=== PATIENT | male | born 1935 | race Caucasian/White ===

== ENCOUNTER → 2016-12-05 | Outpatient (CLI) | payer MEDICARE, OTHER ==
[~2016-12-05] MED LIST: ASPIRIN LO-DOSE81 MG PO; FISH OIL 1,0001 EAC3 PO; FLOMAX0.4 MG PO; HYDRODIURIL12.5 MG PO; LASIX20 MG PO; LIPITOR10 MG PO; LOTENSIN20 MG PO; NITROSTAT0.4 MG SL; NORVASC5 MG PO; OCUVITE SOFTGE1 EACH PO; PLAVIX75 MG PO; PROVENTIL OR V6.7 GM INH; RANEXA ER500 MG PO; Z-PAK250 MG PO
== END | disposition disaster alternative care site (69) ==
LOC: LGSMG 16:18
DX: I50.9 Heart failure, unspecified (principal)

== ENCOUNTER 2016-12-10 05:51 | Outpatient (CLI) | payer MEDICARE, OTHER ==
[~2016-12-10] VITALS: Ht 172.7 cm; Wt 100.3 kg
--- NOTE | ~2016-12-10 | CATH ---
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 80 % proximal eccentric, hazy lesion in a large diagonal brach - large vessel in setting of unstable angina. Diagnostic Recommendations PCI of proximal diagonal. Interventional Findings and Conclusion S/P PCI of the proximal diagonal with FLAKO. Interventional Recommendations DAPT x 1 year. Hydration and followup creatinine. Patient has been instructed to not lift anything more than 5 pounds for 1 week. I will plan on seeing the patient back in 2 week(s). Patient will be discharged tomorrow. Aggressive risk factor management. Aggressive medical therapy for coronary artery disease. Recommend aggressive risk factor modification. Cardiac diet . Referral to Cardiac Rehabilitation now and at discharge . Procedure Description The patient was brought to the diagnostic cardiac catheterization-EP laboratory in the fasting, non-sedated state. Informed consent was obtained in the written and verbal form after the risks and benefits were explained. The patient had no further questions and agreed to proceed. The planned puncture-incision site(s) were shaved and prepped with ChloraPrep and draped in the usual sterile manner. Conscious sedation, supplemental oxygen, and pain control medications were delivered by a registered nurse under physician guidance. Surface ECG rhythm, blood pressure measurement, and pulse oximetry were monitored throughout the procedure. Arterial access. The access site was infiltrated with lidocaine. The vessel was entered with the Seldinger technique. A sheath was advanced into the vessel and used for catheter placement. Venous access. The access site was infiltrated with 2% lidocaine. The vessel was entered with the Seldinger technique. A sheath was advanced into the vessel and used for catheter placement. Selective left coronary angiography. A catheter was advanced into the left coronary vessel ostium under Fluoroscopic guidance. Contrast was injected by hand. Images were obtained in multiple projections. Selective right coronary angiography. A catheter was advanced into the right coronary vessel ostium under fluoroscopic guidance. Contrast was injected by hand. Images were obtained in multiple projections. Right heart catheterization. A [place] Mansoor catheter was successfully advanced to the right atrium, right ventricle, pulmonary artery, and pulmonary artery wedge position under fluoroscopic guidance. Resting hemodynamics were obtained. Measurements included pressures, arterial and venous oxygen saturation samples, and cardiac output. The [place] was removed without difficulty. Angioplasty and Stent Placement: A guiding catheter was used to intubate the vessel. A 0.14 wire was then used to cross the lesion. A balloon catheter was placed across the lesion and inflated. The balloon catheter was then removed. A Drug Eluting Stent was placed and inflated. Post placement angiograms were performed. Arterial and Venous hemostasis was achieved. The patient was transferred to a regular nursing floor via cart accompanied by a nurse. The patient left the laboratory in stable condition. Diagnostic Cath Status: Elective Interventional Cath Status: Elective Procedure Procedure Type Diagnostic procedure:Angiography:, RHC w/Coronary Angio PCI procedure:Drug Eluting Coronary Stent:, Diagonal Indications: Unstable angina. The procedure was explained in detail to the patient. Risks, complications and alternative treatments were reviewed. Written consent was obtained. Medications Reviewed with Patient prior to Procedure. Angiographic Findings Dominance: Right Cardiac Arteries and Lesion Findings LMCA: Normal (0% Stenosis). LAD: Lesion on 1st Diag: Ostial.80% stenosis 12 mm length reduced to 0%. Pre procedure SEEMA III flow was noted. Post Procedure SEEMA III flow was present. The guidewire cross was successful.The lesion was diagnosed as a low risk lesion.Culprit lesion.Bifurcation lesion. Treatment results:Interventional treatment was successful. Devices used - Runthrough NS .014 x 180. Number of passes: 1. - Emerge Balloon 2.5 x 8. 1 inflation(s) to a max pressure of: 10 willis. - Promus Premier 3.0 x 12 Stent. 2 inflation(s) to a max pressure of: 14 willis. Lesion on Mid LAD: 10% stenosis . LCx: Normal (0% Stenosis). RCA: Normal (0% Stenosis). Coronary Tree Procedure Data Procedure Date Date: 12/10/2016Start: 08:35 AMEnd: 09:57 AM Entry Locations - Retrograde Percutaneous access was performed through the Right Radial artery (Primary location). A 6 Fr sheath was inserted. Hemostasis was successfully obtained using Mechanical Compression. Closure Comments: R band with 15 cc air deployed by RT. Noe. - Antegrade Percutaneous access was performed through the Right Brachial vein. A 6 Fr sheath was inserted. Closure Comments: Pressure held for 10 minutes by RT. Noe. Procedure Medications Order and Administration + + + + + !Time !Medication !Dosage !Route ! + + + + + !12/10/2016 08:33 !Oxygen !1 l/min !NC ! !AM ! ! ! ! + + + + + !12/10/2016 08:33 !Fentanyl !25 mcg !I.V. ! !AM ! ! ! ! + + + + + !12/10/2016 08:39 !Oxygen !2 l/min !NC ! !AM ! ! ! ! + + + + + !12/10/2016 08:39 !Radial Verapamil !2.5 mg !I.A. ! !AM ! ! ! ! + + + + + 12/10/2016 09:06 !Angiomax (Bivalirudin) !75 mg !I.V. bolus ! !AM !(ACC_5) ! ! ! + + + + + !12/10/2016 09:09 !Angiomax (Bivalirudin) !1.75 mg/kg/hr!I.V. drip ! !AM !(ACC_5) ! ! ! + + + + 12/10/2016 09:37 !Plavix (ACC_8) !600 mg !P.O. ! !AM ! ! ! ! + + + + + !12/10/2016 08:47 !Heparin (ACC_3) !5000 units !I.V. ! !AM ! ! ! ! + + + + + Devices Used - A6 Fr. Balloon Wedge Catheterwas used for:Right heart cath. - A5 Fr. BS JR 4 Diag. Catheterwas used for:Right coronary angiography.Unable to cannulate the vessel. - A6 Fr. JJ 3DRC Diag. Catheterwas used for:Right coronary angiography. - A5 Fr. BS JL 3.5 Diag. Catheterwas used for:Left coronary angiography. - A6 Fr. XB 3.5 Guide Catheterwas used for:LAD Intervention.Unable to cannulate the vessel. - A6 Fr. EBU 3.5 Guide Catheterwas used for:LAD Intervention. - A6 Fr. Guidlinerwas used for:LAD Intervention. Contrast Material - Isovue 125732 ml Fluoroscopy Time: Diagnostic: 22:06 minutes. Total: 22:06 minutes. Fluoroscopy Dose: Diagnostic: 2766 mGy. Total: 2766 mGy. Estimated Blood Loss: [address] [facility] PCI Information PCI Indication:PCI for high risk Non-STEMI or unstable angina. Medical History Performed Procedures and Imaging Results - No [facility] stress or imaging studies were performed. Allergies - Other:(tramadol). Risk Factors The patient risk factors include:hypertension, last creatinine: 1.6 mg/dl, creatinine clearance: 52.24 ml/min, dyslipidemia and former tobacco use. Admission Data Admission Date: 12/10/2016 Admission Time: 05:51 AM Admit Source: Other Insurance Payors: Medicare. Admission Medications + +------+------+ + + + + !Medication !Dosage!Times !Last !Last !Administered !Comments ! ! ! !Per !Delivery !Delivery ! ! ! ! ! !Day !Date !Time ! ! ! + +------+------+ + + + + !COLLETTE ! ! ! ! !Yes ! ! !Inhibitor ! ! ! ! ! ! ! !(any) ! ! ! ! ! ! ! + +------+------+ + + + + !Aspirin ! ! ! ! !Yes ! ! !(any) ! ! ! ! ! ! ! + +------+------+ + + + + !Statin (any)! ! ! ! !Yes ! ! + +------+------+ + + + + Clinical Evaluation Leading to Procedure - The patient's CAD presentation was assessed as: Unstable angina. - The patient's anginal syndrome during the past two weeks was assessed as: Class III according to the [place] Cardiovascular Society Classification System (CCS). Anti-anginal medications were prescribed during the past two weeks. The medications are: Ca channel Blockers and Ranolazine. - The patient has been in a state of heart failure within the past two weeks. - The patient's heart failure status was assessed as NYHA Class III, with CHF symptoms of ALLISON. Hemodynamics Condition: Rest O2 Consumption: Estimated: 231.29Heart Rate: 55 bpm Oxygen Saturation +--------+-----+----+ +---+ + !Location!pCO2 !pO2 !% Saturation !Hgb!O2 Content ! +--------+-----+----+ +---+ + !PA ! ! !71.1 ! ! ! +--------+-----+----+ +---+ + !RV ! ! !70.1 ! ! ! +--------+-----+----+ +---+ + !RA ! ! !71.9 ! ! ! +--------+-----+----+ +---+ + Pressures (mmHg) +-----+ + !Site !Pressure ! +-----+ + !PA !34/9 (18) ! +-----+ + !PCW !/ (6) ! +-----+ + !RV !34/ ,7 ! +-----+ + !RA !12/04 (4) ! +-----+ + !AO !115/53 (77) ! +-----+ + !AO !134/59 (89) ! +-----+ + !AO !114/51 (76) ! +-----+ + Shunts Oxygen Values O2 Capacity 189.04 O2 Consumption 231.29 Signatures dtt: INES ACUÑA dtd: 12/10/16 0835 Physician Self Edit
[~2016-12-10 05:51] MED LIST changes: -NITROSTAT0.4 MG SL; -PLAVIX75 MG PO
[2016-12-10 06:46] LABS: BASOPHIL % 0.5 %; EOSINOPHIL # 0.6 K/uL (0.0-0.5); EOSINOPHIL % 9.6 %; HEMATOCRIT 40.6 % (33.0-50.0); HEMOGLOBIN 13.9 g/dL (11.0-16.0); IMMATURE GRANULOCYTE % 0.5 %; LYMPHOCYTE # 1.3 K/uL (0.8-4.0); LYMPHOCYTE % 21.2 %; MCH 30.8 pg (27.0-34.0); MCHC 34.2 gm/dL (32.0-36.5); MCV 89.8 fl (83.0-98.0); MONOCYTE # 0.7 K/uL (0.0-1.0); MONOCYTE % 11.1 %; MPV 9.1 fl (9.4-12.4); NEUTROPHIL # (ANC) 3.5 K/uL (1.4-9.0); NEUTROPHIL % 57.1 %; NRBC % 0 /100WBC (0-0.00); PLATELET COUNT 202 K/uL (150-450); RBC 4.52 M/uL (3.50-5.50); RDW-CV 12.7 % (11.9-14.6); WBC 6.1 K/uL (4.0-11.0)
[2016-12-10 07:01] LABS: ALBUMIN 3.3 gm/dL (3.5-5.0); ANION GAP 11.4 (10.0-19.0); CALCIUM 8.6 mg/dL (8.5-10.5); CREATININE 1.6 mg/dL (0.6-1.3); POTASSIUM 4.4 mMol/L (3.7-5.1); TOTAL BILIRUBIN 0.4 mg/dL (0.0-1.5)
[2016-12-10 07:03] LABS: INR - (THERAPEUTIC) 0.95 (0.92-1.07); PTT 26 SECONDS (25-32)
[2016-12-10 11:44] LABS: CPK 88 IU/L (35-332)
--- NOTE | 2016-12-10 15:09 | NUR ---
Significant Event: A/O. VSS weaned to RA. Denies pain. R) radial site WNL - r band removed at 1430. R) brachial site remains WNL with d stat and tegaderm in place. Up ambulating in halls and tolerated well. Voiding per urinal. Tolerating meals. Follow up: dismiss to home tomorrow.
[2016-12-10 17:21] LABS: CPK 86 IU/L (35-332)
--- NOTE | 2016-12-11 04:15 | NUR ---
Significant Event: Patient A/Ox3. VSS on RA. Up SBA to bathroom. R) radial and brachial heart cath sites are soft. Brachial site does have slight bruising from when patient first returned to the floor yesterday morning with slight drainage on the dressing. No complaints of pain. Lung sounds are diminished. Follow up: Hold morninging lisinopril if creatinine has not improved. Home today?
[2016-12-11 05:24] LABS: ANION GAP 10.8 (10.0-19.0); CALCIUM 8.5 mg/dL (8.5-10.5); CREATININE 1.3 mg/dL (0.6-1.3); POTASSIUM 4.8 mMol/L (3.7-5.1); TOTAL PROTEIN 6.5 g/dL (6.0-8.4)
[2016-12-11 05:25] LABS: TOTAL BILIRUBIN 0.3 mg/dL (0.0-1.5)
[2016-12-11] MEDS ORDERED: LOTENSIN20 MG PO ×2 (10:38→10:44)
[2016-12-11] MEDS ORDERED: PLAVIX75 MG PO ×2 (10:39→10:46)
[2016-12-11] MEDS ORDERED: LASIX20 MG PO (10:48)
[2016-12-11] MEDS ORDERED: NITROSTAT0.4 MG SL (10:49)
== END 2016-12-11 11:19 | disposition disaster alternative care site (69) ==
LOC: GCAT 05:51 → GPCU 05:51 → GPOC 06:00 → GPCU 09:15 → GCAT 12-11 11:19 → GPOC 12-11 13:00
PROVIDERS: Internal Medicine Interventional Cardiology
PROC: 4A023N8 Measurement of Cardiac Sampling and Pressure, Bilateral, Percutaneous Approach (ICD-10-PCS; principal; 2016-12-10)
PROC: B216YZZ Fluoroscopy of Right and Left Heart using Other Contrast (ICD-10-PCS; 2016-12-10)
DX: I20.0 Unstable angina (principal)
CPT/HCPCS: C1725; C1769; C1874; C1887; C1894; C9600; J0583; J1644; J2001; J2250; J3010; J7030; J7060

== ENCOUNTER → 2016-12-22 | Outpatient (CLI) | payer MEDICARE, OTHER ==
[~2016-12-22] MED LIST changes: +NITROSTAT0.4 MG SL; +PLAVIX75 MG PO
[2016-12-22 15:26] LABS: ANION GAP 10.2 (10.0-19.0); CALCIUM 8.8 mg/dL (8.5-10.5); CREATININE 1.4 mg/dL (0.6-1.3); POTASSIUM 4.2 mMol/L (3.7-5.1)
== END | disposition disaster alternative care site (69) ==
LOC: LNHI 15:05
PROVIDERS: Internal Medicine Interventional Cardiology
DX: I25.119 Atherosclerotic heart disease of native coronary artery with unspecified angina pectoris (principal); I10 Essential (primary) hypertension; R42 Dizziness and giddiness

== ENCOUNTER → 2017-01-19 | Outpatient (CLI) | payer MEDICARE, OTHER ==
--- NOTE | ~2017-01-19 | PUL ---
PATIENT'S NAME: ASHLEY SARABIA [facility] AGE: 81 Y [address] ROOM: [place] [address] LOCATION: [facility] ADMIT DATE: 01/19/2017 Pulmonary DISCHARGE DATE: FAMILY PHYSICIAN: Thalia Plummer MD ATTENDING PHYSICIAN: Thalia Plummer NAME OF PROCEDURE: Sleep study PROCEDURE DATE: 01/19/17 TECH: WALTER [place] TEST #: [facility]# [id number] TECHNICAL PARAMETERS: The patient was studied using International 10/20 measuring system. While the patient was studied, there was continuous monitoring of EEG (8 leads), EOG (2 leads), EKG (3 leads), submental EMG (3 leads), tibial (4 leads), respiratory inductive plethysmography (RIP) for thoracic and abdominal effort, oral and nasal airflow with a thermocouple and pressure transducer, and oximetry. The residential service technician also performed visual and auditory observations noting things like body position, patient's status, breath sounds, artifact, snoring level and patient comments. Continuous sound was monitored using a 2-way speaker system and video monitoring was performed using an infrared camera. Review of the entire study was performed epoch by epoch utilizing a single epoch and multiple epoch capability sleep system. MEDICAL HISTORY: The patient is an 81-year-old overweight man with daytime sleepiness. SLEEP STAGE SUMMARY: The patient was studied for 411 minutes of which he slept 280 minutes. He fell asleep in 16 minutes and slept for 68% of the night. Sleep architecture revealed a decline in slow wave and REM sleep. RESPIRATORY SUMMARY: Oxygen saturations ranged from 72-89% and were below 88% for essentially the entire night. Prior to initiating CPAP there were 69 apneas and 69 hypopneas for an apnea/hypopnea index severely elevated at 60 events per hour. CPAP was initiated. Best level of control occurred with CPAP at 10 cm producing an apnea/hypopnea index of 8 events per hour. EKG SUMMARY: No significant dysrhythmias were noted. LIMB MOVEMENT SUMMARY: No clinically relevant periodic limb movements were noted once the CPAP was applied. ASSESSMENT: Obstructive sleep apnea with good control of the respiratory PATIENT'S NAME: ASHLEY SARABIA [facility] AGE: 81 Y [address] ROOM: [place] [address] LOCATION: [facility] ADMIT DATE: 01/19/2017 Pulmonary DISCHARGE DATE: FAMILY PHYSICIAN: Thalia Plummer MD ATTENDING PHYSICIAN: Thalia Plummer events on 10 cm. PLAN: Suggest CPAP at 10 cm. Patient will receive results from the ordering provider. IZABEL CHENG MD MAY/ /[id number] dtt: 01/27/17 1011 , Izabel Cheng. dtd: 01/22/17 1546
== END | disposition disaster alternative care site (69) ==
LOC: GSLP 12-22 21:00
DX: G47.33 Obstructive sleep apnea (adult) (pediatric) (principal); G47.10 Hypersomnia, unspecified